=== PATIENT | female | born 1950 | race Caucasian/White ===

== ENCOUNTER → 2016-04-23 17:12 | Outpatient (CLI) | payer OTHER ==
[2014-09-19 07:14] VITALS: BMI 29.2
[~2016-04-23 17:12] MED LIST: ANASTROZOLE1 MG PO; BENADRYL A12.5 MG/5 PO; HYDROCODONE-APA1 TAB PO; PERCOCET 10/3251 TA1 PO; SYNTHROID112 MCG PO; SYNTHROID125 MCG PO; VALIUM5 MG PO
== END | disposition home or self-care (01) ==
LOC: D.MAMMO 13:30
DX: Z85.3 Personal history of malignant neoplasm of breast (principal)

== ENCOUNTER → 2017-06-09 17:30 | Outpatient (CLI) | payer MEDICARE ==
[2014-09-19 07:14] VITALS: BMI 29.2
[~2017-06-09 17:30] MED LIST changes: +ALLEGRA-D1 TAB.SR1 PO; -BENADRYL A12.5 MG/5 PO; +COLACE100 MG PO
== END | disposition home or self-care (01) ==
LOC: D.MAMMO 04-14 13:00
DX: C50.411 Malignant neoplasm of upper-outer quadrant of right female breast (principal)

== ENCOUNTER 2017-09-07 17:43 | Inpatient (IN) | payer MEDICARE, OTHER ==
[~2017-09-07] VITALS: Ht 167.6 cm; Wt 75.8 kg
--- NOTE | ~2017-09-07 | OP ---
PATIENT NAME: CAM JAQUEZ MEDICAL RECORD: [id number] LOCATION:[id number] ADMISSION DATE:09/07/17 SURGEON: ANDREA DENG MD DATE OF OPERATION: 09/09/2017 PREOPERATIVE DIAGNOSIS: Lisfranc injury of the right foot. POSTOPERATIVE DIAGNOSIS: Lisfranc injury of the right foot. PROCEDURE: ORIF Lisfranc injury with an Ar[employer]rex TightRope technique. SURGEON: Andrea Deng MD ANESTHESIA: General. INTRAOPERATIVE COMPLICATIONS: None. SUMMARY OF PATHOLOGIC FINDINGS: Consistent of preoperative radiographs and CT scan. The patient had a split divergent Lisfranc injury. This reduced nicely and was held nicely with the TightRope system. OPERATIVE SUMMARY IN DETAIL: After obtaining the appropriate preoperative orthopedic surgery consent as well as anesthetic consultation, evaluation, and clearance, the patient was brought to the operating room and placed on the operating table in supine position. After adequate general laryngeal mask airway was administered, tourniquet was placed on the proximal aspect of the right lower extremity. Right lower extremity was prepped and draped in routine sterile fashion. The leg was elevated and exsanguinated, tourniquet inflated to 350 mmHg. Under direct fluoroscopic guidance, a guide pin of the Lisfranc technique was then placed at the base of the second metatarsal. It was then placed from the base of second metatarsal to the medial cuneiform. Having completed this, overdrilling was followed by placement of Lisfranc TightRope itself. It was deployed under fluoroscopic guidance to the medial side of the medial cuneiform. Having completed this, the TightRope was then deployed and pulled tightly under fluoroscopic guidance, the Lisfranc joint reduced nicely. The lateral column reduced perfectly into place. Wounds were then irrigated and closed with 4-0 Prolene. Sterile dressings were applied. Tourniquet was deflated. Posterior L&U splint was applied. The patient was then awakened, taken to recovery room in stable condition. All final needle and sponge counts were correct. TRANSINT:[id number] Voice Confirmation ID: [id number] DOCUMENT ID: [id number] ANDREA DENG MD at 0857 CC: [id number] DICTATION DATE: 09/09/17 7268 [employer] METAL: 09/09/17 1908 ADM IN [facility] [address] [place] [address]
[~2017-09-07 17:43] MED LIST changes: -COLACE100 MG PO
[2017-09-07 19:53] VITALS: BP 121/70
[2017-09-07 21:06] VITALS: BP 117/77
[2017-09-07] MEDS ORDERED: COLACE100 MG PO (22:54)
[2017-09-07 23:32] VITALS: BP 150/84; BMI 27.1
[2017-09-08] VITALS (8 sets, daily range): BP systolic 128–159; BP diastolic 68–99; Ht 167.6 cm; Wt 75.8 kg
[2017-09-08 04:58] LABS: INR 1.11 (0.85-1.17); PROTIME 13.9 SECONDS (11.6-15.0)
[2017-09-08 05:01] LABS: CALC OSMOLALITY 277 mosm/kg (275-300); CALCIUM 8.4 mg/dL (8.5-10.1); CARBON DIOXIDE 27.8 mmol/L (21.0-32.0); CHLORIDE - SERUM 106 mmol/L (98-107); CREATININE - SERUM 0.6 mg/dL (0.6-1.3); GLUCOSE 115 mg/dL (74-106); POTASSIUM - SERUM 3.6 mmol/L (3.5-5.1); SODIUM 139 mmol/L (136-145); UREA NITROGEN 9 mg/dL (7-18); eGFR NON AFRICAN AMERICAN > 90 mL/min (90-120)
[2017-09-08 05:23] LABS: BASOPHILS 1.1 % (0-2); EOSINOPHILS 3.1 % (0-7); HEMATOCRIT 28.6 % (36.0-48.0); HEMOGLOBIN 9.1 g/dL (12-16); LYMPHOCYTES 12.5 % (15-50); MCH 26.2 pg (26.0-34.0); MCHC 31.8 g/dL (31.0-37.0); MCV 82.4 fL (80.0-100.0); MEAN PLATELET VOLUME 10.5 fL (7.4-10.4); MONOCYTES 7.2 % (2-11); NEUTROPHILS 76.1 % (40-80); RBC 3.47 10x6/uL (4.00-5.40); RDW 15.2 % (11.5-14.5); WBC 3.6 10x3/uL (4.8-10.8)
[2017-09-08 05:24] LABS: PLATELET COUNT 142 10x3/uL (130-400)
[2017-09-08 11:44] LABS: FERRITIN 12 ng/mL (3-244); LDH 146 U/L (81-234)
[2017-09-09] VITALS (10 sets, daily range): BP systolic 107–143; BP diastolic 44–80
[2017-09-09 05:43] LABS: BASOPHILS 1.1 % (0-2); EOSINOPHILS 6.8 % (0-7); HEMATOCRIT 29.1 % (36.0-48.0); HEMOGLOBIN 9.4 g/dL (12-16); IMMATURE GRANULOCYTES 0.4 % (0-5); LYMPHOCYTES 15.8 % (15-50); MCH 27.5 pg (26.0-34.0); MCHC 32.3 g/dL (31.0-37.0); MCV 85.1 fL (80.0-100.0); MEAN PLATELET VOLUME 9.8 fL (7.4-10.4); MONOCYTES 4.7 % (2-11); NEUTROPHILS 71.2 % (40-80); PLATELET COUNT 137 10x3/uL (130-400); RBC 3.42 10x6/uL (4.00-5.40); RDW 15.5 % (11.5-14.5); WBC 2.8 10x3/uL (4.8-10.8)
[2017-09-09 06:00] LABS: CALC OSMOLALITY 275 mosm/kg (275-300); CALCIUM 8.8 mg/dL (8.5-10.1); CARBON DIOXIDE 23.9 mmol/L (21.0-32.0); CHLORIDE - SERUM 104 mmol/L (98-107); CREATININE - SERUM 0.5 mg/dL (0.6-1.3); GLUCOSE 91 mg/dL (74-106); POTASSIUM - SERUM 3.8 mmol/L (3.5-5.1); SODIUM 139 mmol/L (136-145); UREA NITROGEN 7 mg/dL (7-18); eGFR NON AFRICAN AMERICAN > 90 mL/min (90-120)
[2017-09-09 10:21] LABS: FOLATE (FOLIC ACID) - SERUM 6.6 ng/mL (>3.0)
[2017-09-10] VITALS (7 sets, daily range): BP systolic 113–135; BP diastolic 58–77
[2017-09-10 05:11] LABS: BASOPHILS 0.3 % (0-2); EOSINOPHILS 0.3 % (0-7); HEMATOCRIT 25.7 % (36.0-48.0); HEMOGLOBIN 8.7 g/dL (12-16); IMMATURE GRANULOCYTES 0.3 % (0-5); LYMPHOCYTES 9.7 % (15-50); MCH 31.2 pg (26.0-34.0); MCHC 33.9 g/dL (31.0-37.0); MEAN PLATELET VOLUME 10.1 fL (7.4-10.4); MONOCYTES 6.6 % (2-11); NEUTROPHILS 82.8 % (40-80); PLATELET COUNT 135 10x3/uL (130-400); RBC 2.79 10x6/uL (4.00-5.40); RDW 18.6 % (11.5-14.5); WBC 3.5 10x3/uL (4.8-10.8)
[2017-09-10 05:19] LABS: MCV 92.1 fL (80.0-100.0)
[2017-09-10 05:29] LABS: CALC OSMOLALITY 277 mosm/kg (275-300); CALCIUM 7.9 mg/dL (8.5-10.1); CARBON DIOXIDE 21.5 mmol/L (21.0-32.0); CHLORIDE - SERUM 106 mmol/L (98-107); CREATININE - SERUM 0.5 mg/dL (0.6-1.3); GLUCOSE 112 mg/dL (74-106); POTASSIUM - SERUM 3.8 mmol/L (3.5-5.1); SODIUM 140 mmol/L (136-145); UREA NITROGEN 8 mg/dL (7-18); eGFR NON AFRICAN AMERICAN > 90 mL/min (90-120)
[2017-09-11 04:20] VITALS: BP 139/71
[2017-09-11 05:30] LABS: CALC OSMOLALITY 280 mosm/kg (275-300); CALCIUM 8.4 mg/dL (8.5-10.1); CARBON DIOXIDE 26.2 mmol/L (21.0-32.0); CHLORIDE - SERUM 107 mmol/L (98-107); CREATININE - SERUM 0.6 mg/dL (0.6-1.3); GLUCOSE 99 mg/dL (74-106); POTASSIUM - SERUM 3.4 mmol/L (3.5-5.1); SODIUM 142 mmol/L (136-145); UREA NITROGEN 6 mg/dL (7-18); eGFR NON AFRICAN AMERICAN > 90 mL/min (90-120)
[2017-09-11 05:31] LABS: BASOPHILS 1.4 % (0-2); EOSINOPHILS 7.3 % (0-7); HEMATOCRIT 26.8 % (36.0-48.0); HEMOGLOBIN 8.7 g/dL (12-16); IMMATURE GRANULOCYTES 0.3 % (0-5); LYMPHOCYTES 10.8 % (15-50); MCHC 32.5 g/dL (31.0-37.0); MEAN PLATELET VOLUME 9.9 fL (7.4-10.4); MONOCYTES 11.8 % (2-11); NEUTROPHILS 68.4 % (40-80); PLATELET COUNT 158 10x3/uL (130-400); RBC 3.11 10x6/uL (4.00-5.40); RDW 15.8 % (11.5-14.5); WBC 2.9 10x3/uL (4.8-10.8)
[2017-09-11 05:33] LABS: MCV 86.2 fL (80.0-100.0)
[2017-09-11 08:16] VITALS: BP 119/63
[2017-09-11] MEDS ORDERED: ELIQUIS2.5 MG PO (08:22)
[2017-09-11] MEDS ORDERED: HYDROCODONE-APA1 TAB PO (08:22)
== END 2017-09-11 16:15 | disposition home health service (06) | DRG 505 ==
LOC: D.ER 17:43 → D.MS 21:10 → D.ICU 21:10 → D.EDHOLD 21:10 → D.MS 21:48 → D.ICU 09-08 00:16 → D.MS 09-08 15:33
PROVIDERS: Family Medicine; Internal Medicine Nephrology; Orthopaedic Surgery
PROC: 0QSN04Z Reposition Right Metatarsal with Internal Fixation Device, Open Approach (ICD-10-PCS; principal; 2017-09-09 14:30)
DX: S92.331A Displaced fracture of third metatarsal bone, right foot, initial encounter for closed fracture (principal); S92.341A Displaced fracture of fourth metatarsal bone, right foot, initial encounter for closed fracture; S92.351A Displaced fracture of fifth metatarsal bone, right foot, initial encounter for closed fracture; S92.324A Nondisplaced fracture of second metatarsal bone, right foot, initial encounter for closed fracture; S92.224A Nondisplaced fracture of lateral cuneiform of right foot, initial encounter for closed fracture; S92.244A Nondisplaced fracture of medial cuneiform of right foot, initial encounter for closed fracture; S92.311A Displaced fracture of first metatarsal bone, right foot, initial encounter for closed fracture; S92.355A Nondisplaced fracture of fifth metatarsal bone, left foot, initial encounter for closed fracture; W18.30XA Fall on same level, unspecified, initial encounter; I10 Essential (primary) hypertension; K21.9 Gastro-esophageal reflux disease without esophagitis; E03.9 Hypothyroidism, unspecified; F41.1 Generalized anxiety disorder; D50.9 Iron deficiency anemia, unspecified; Z85.3 Personal history of malignant neoplasm of breast